=== PATIENT | male | born 2000 ===

== ENCOUNTER 2021-04-14 04:43 | Day surgery (SDC) | payer SELFPAY ==
[2021-04-14 05:52] LABS: Bilirubin Negative (Negative); Blood, Urine Negative (Negative); Clarity Clear (Clear); Glucose, Urine (Dipstick) Normal (Negative); Ketone, Urine Negative (Negative); Leukocyte Negative Leu/uL (Negative); Nitrite Negative (Negative); Protein, Urine (Dipstick) 20 mg/dL (Neg-Trace); Specific Gravity, Urine 1.033 (1.002-1.036); Urobilinogen Normal mg/dL (Less than 2); pH, Urine 5.5 (5.0-9.0)
[2021-04-14 05:55] LABS: Hemoglobin 14.8 g/dL (14.0-18.0); Mean Corpuscular HGB CONC 34.3 g/dL (32.0-36.0); Mean Corpuscular Volume 90.3 fL (78.0-98.0); Mean Platelet Volume 6.9 fL (7.4-10.4); Platelet Count 322 thou/uL (130-400); RBC Distribution Width 11.2 % (11.5-14.5); Red Blood Cell (RBC) Count 4.77 mill/uL (4.00-5.20); White Blood Cell (WBC) Count 22.2 thou/uL (4.8-10.8)
[2021-04-14 06:10] LABS: Band 3 % (5-11); Lymphocytes 8 % (28-48); MDiff Complete? YES; Monocytes 8 % (0-4); Neutrophil 77 % (31-61); Platelet Morphology Comment Appears Adequate; RBC Morphology Normal; Reactive Lymphocytes 4 % (0-10)
[2021-04-14 06:13] LABS: ALT (SGPT) 16 U/L (8-55); AST (SGOT) 14 U/L (10-45); Albumin 4.6 g/dL (3.5-5.0); Alkaline Phosphatase 106 U/L (50-130); Anion Gap 12 mmol/L (10-20); BUN (Urea Nitrogen) 11 mg/dL (8.4-21.0); Bilirubin, Total 0.4 mg/dL (0.2-1.2); Calc. Creatinine Clearance 0 mL/min (70-130); Calcium 10.2 mg/dL (7.8-10.44); Carbon Dioxide 26 mmol/L (22-29); Chloride 102 mmol/L (98-107); Globulin 3.6 g/dL (2.4-3.5); Glucose 123 mg/dL (70-105); Potassium 4.1 mmol/L (3.5-5.1); Protein, Total 8.2 g/dL (6.0-8.3); Sodium 136 mmol/L (136-145)
[2021-04-14] MEDS ORDERED: Ondansetron PF 4 MG/2 ML Vial ONE ×2 (07:16→10:24)
[2021-04-14] MEDS ORDERED: Morphine 4 MG/ML VIAL ONE ×2 (07:16→09:23)
[2021-04-14] MEDS ORDERED: Sodium Chloride 0.9% 100 ML ONE ×2 (08:15→13:56)
[2021-04-14] MEDS ORDERED: Iopamidol-370 76% 500 ML 1 ML ONE (09:19)
[2021-04-14 09:27] LABS: SARS-CoV-2 NAA Rapid Test Not Detected (NotDetected)
[2021-04-14] MEDS ORDERED: Meperidine HCl/PF 25 MG/ML VIAL ONE (09:52)
[2021-04-14] MEDS ORDERED: Fentanyl 100 MCG/2 ML VIAL ONE (09:52)
[2021-04-14] MEDS ORDERED: Midazolam HCl 2 mg/2 ml Vial ONE (09:52)
[2021-04-14] MEDS ORDERED: Lidocaine 1% w/Epinephrine 1:100K 30 ML VIAL ONE (09:56)
[2021-04-14] MEDS ORDERED: Bupivacaine 0.25% HCL 30 ML VIAL ONE (09:56)
[2021-04-14] MEDS ORDERED: Lidocaine 1% PF 5 ML VIAL ONE (10:24)
[2021-04-14] MEDS ORDERED: Dexamethasone 20 MG/5 ML VIAL ONE (10:24)
[2021-04-14] MEDS ORDERED: PROPOFOL 200 MG/20 ML VIAL ONE (10:24)
[2021-04-14] MEDS ORDERED: Glycopyrrolate 0.2 MG/ML 5 ML SYRINGE ONE (10:24)
[2021-04-14] MEDS ORDERED: Succinylcholine 200 MG/10 ml SYRINGE FS ONE (10:24)
[2021-04-14] MEDS ORDERED: Piperacillin/Tazobactam 3.375 GM VIAL ONE (13:51)
[2021-04-14] MEDS ORDERED: Sodium Chloride 0.9% 10 ML ONE (13:56)
== END 2021-04-14 15:20 | disposition home or self-care (01) ==
LOC: ERS 04:43 → SDC 09:30
PROVIDERS: ATTEND Surgery
PROC: 0DTJ4ZZ Resection of Appendix, Percutaneous Endoscopic Approach (ICD-10-PCS; principal; 2021-04-14)
DX: K35.80 Unspecified acute appendicitis (principal); Z20.822 Contact with and (suspected) exposure to COVID-19
CPT/HCPCS: 36415; 74177; 80053; 81003; 85025; 88304; 96365; 96375; 96376; J1100; J2175; J2250; J2270; J2405; J2543; J2704; J3010; J3490; Q9967; S0020; U0002